=== PATIENT | female | born 1965 | race Caucasian/White ===

== ENCOUNTER → 2017-07-05 | Outpatient (CLI) | payer OTHER ==
--- NOTE | 2017-07-05 14:09 | RADRPT ---
EXAM DATE/TIME: 07/05/2017 12:49 [facility] COMPARISON: No previous studies available for comparison. INDICATIONS : Rheumatoid arthritis. MEDICAL HISTORY : Rheumatoid arthritis. SURGICAL HISTORY : None. ENCOUNTER: Initial ACUITY: >1 year PAIN SCORE: 2/10 LOCATION: Right hand FINDINGS: Three view examination of the right hand demonstrates no soft tissue swelling, dislocation, or fractu re. Scattered mild degenerative changes. Soft tissue swelling. Bony mineralization is normal. CONCLUSION: Scattered nonspecific degenerative changes without fracture. Glenn Stuart MD on July 05, 2017 at 14:07 Board Certified Radiologist. This report was verified electronically.
--- NOTE | 2017-07-05 14:10 | RADRPT ---
EXAM DATE/TIME: 07/05/2017 12:51 [facility] COMPARISON: No previous studies available for comparison. INDICATIONS : Rheumatoid arthritis. MEDICAL HISTORY : Rheumatoid arthritis. SURGICAL HISTORY : left wrist tendon repair ENCOUNTER: Initial ACUITY: >1 year PAIN SCORE: 2/10 LOCATION: Left hand FINDINGS: Three view examination of the left hand demonstrates no soft tissue swelling, dislocation, or fractur e. Scattered mild degenerative changes. Soft tissue swelling. Bony mineralization is normal. CONCLUSION: Scattered nonspecific degenerative changes without fracture. Glenn Stuart MD on July 05, 2017 at 14:09 Board Certified Radiologist. This report was verified electronically.
== END ==
LOC: HRAD 12:32
PROVIDERS: ATTEND Obstetrics & Gynecology Reproductive Endocrinology
DX: M06.842 Other specified rheumatoid arthritis, left hand (principal); M06.841 Other specified rheumatoid arthritis, right hand
CPT/HCPCS: 73130